=== PATIENT | female | born 1945 | race Caucasian/White ===

== ENCOUNTER 2016-09-10 05:15 | Day surgery (SDC) | payer OTHER ==
[~2016-09-10] VITALS: Ht 162.6 cm; Wt 127.1 kg
--- NOTE | ~2016-09-10 | O ---
[facility] [place] [address] [place] [address] OPERATIVE REPORT Name: MAGGIE MERIDAJen Brennan Room #: 150-4 [facility]#: [id number] Admission: 09/10/16 Attend Phys: Erasmo Loredo MD, Discharge: Date of : 45 Report #: [id number] THIS REPORT FOR: //name// CC: Erasmo Read DATE OF SERVICE: 09/10/2016 PREOPERATIVE DIAGNOSES: 1. Open and grossly infected post-surgical nonhealing abdominal wall wounds with exposed mesh and nonviable fascia. 2. Morbid obesity. 3. Hypertension. 4. Chronic pain. 5. Anxiety. POSTOPERATIVE DIAGNOSES: 1. Open and grossly infected post-surgical nonhealing abdominal wall wounds with exposed mesh and nonviable fascia. 2. Morbid obesity. 3. Hypertension. 4. Chronic pain. 5. Anxiety. PROCEDURES PERFORMED: Excisional debridement of infected abdominal wall, skin, subcutaneous tissue, muscle and fascia from the left mid abdominal wall wound, ultimately yielding a wound measuring 5 x 5 cm in dimension. SURGEON: Erasmo Loredo M.D. SEWING MACHINE MECHANIC: Juan Gagnon MS3. ANESTHESIA: General endotracheal anesthesia. ESTIMATED BLOOD LOSS: Minimal (less than 10 mL). COMPLICATIONS: None appreciated. SPECIMENS: 1. Retained, grossly infected packing gauze to pathology. 2. Debrided nonviable infected abdominal wall fascia to pathology and microbiology. INDICATIONS: The patient is a 71-year-old morbidly obese female, who initially presented to an outside hospital with a small-bowel obstruction for which she underwent exploratory laparotomy. The patient unfortunately sustained [facility] [address] [place] [address] OPERATIVE REPORT Name: LUCI MERIDA Room #: 150-4 [facility].#: [id number] Admission: 09/10/16 Attend Phys: Erasmo Loredo MD, Discharge: Date of : 45 Report #: [id number] a bowel perforation, for which she was taken back to the operating room a few days later and underwent repeat exploration with washout, bowel resection, and ultimately underwent closure of her abdominal wall wound. The patient developed a hematoma in the left mid abdominal wall that was reportedly suspected to be infected and underwent limited incision and drainage. The patient has since been transitioned to [facility] for aggressive local wound care with exposed mesh throughout her nonhealing midline wound, as well as in the left upper quadrant. The patient has had the skin closed off in the left upper quadrant wound to a small punctate opening with grossly necrotic tissue in the bed of the wound, and necessitated excisional debridement of her infected necrotic abdominal wall fascia today. DESCRIPTION OF PROCEDURE: After explaining the risks, benefits, and alternatives of the procedure with the patient in detail in the preoperative holding area and obtaining written consent, the patient was brought to the operating room and placed supine on the operating room table. After conducting a thorough timeout procedure verifying correct patient and procedure, the patient was given general endotracheal anesthesia. Once adequate anesthesia was obtained, SCDs were hooked up to pneumatic compression device. She was given a preoperative dose of antibiotics in line with the SCIP protocol. The patient's abdomen was prepped and draped in the standard surgical sterile fashion. Electrocautery was used to circumferentially debride skin, subcutaneous tissue, muscle, and fascia from the left mid abdominal wall, grossly infected nonhealing wound. Hemostasis was attained with electrocautery. Upon arriving at the level of the fascia, there was evidence of foul smelling what appeared to be grossly infected packing gauze stuck in a tight tunnel at the fascial level. This was removed and passed off the field for microbiologic analysis and pathologic evaluation. I now proceeded to circumferentially debride all nonviable infected fascia, which revealed a healthy rectus muscle evident in the bed of the wound. Once all infected tissue had been removed and passed off the field, the wound was copiously irrigated. Hemostasis was assured. I then packed all wounds tightly with sterile saline soaked Kerlix gauze, and dressed it with ABDs and Medipore tape. At the end of the procedure, all instrument, needle, and sponge counts were correct. The patient tolerated the procedure without incident, was awakened in the operating room and transitioned to the recovery room in stable condition with no apparent complications. <ELECTRONICALLY SIGNED> By: Erasmo Loredo MD, FACS 09/10/16 1512 [id number] Erasmo Loredo MD, FACS /nt
--- NOTE | ~2016-09-10 | S ---
[facility] [place] [address] [place] [address] SURGICAL PATH RPT PROCEDURE Name: LUCI CHEN Room #: 150-4 [facility] M.R.#: [id number] Admission: 09/10/16 Date of : 45 Discharge: Report #: [id number] Path Case #: [id number] PATHOLOGY REPORT COLLECTION DATE: 09/10/2016 RECEIVED DATE: 09/10/2016 SUBMITTING PHYS: Dr. Erasmo Loredo OTHER PHYS: Dr. Deisi Read SPECIMEN(S) RECEIVED: A.Infected abdominal wall packing with tissue B.Infected abdominal wall fascia * * * * * * * * * * * * FINAL DIAGNOSIS: A. Infected abdominal wall packing with tissue: - 15.2 cm of gauze-like material (gross exam only). B. Infected abdominal wall fascia, debridement: - Marked acute inflammation along with fibrinoid degeneration. (IUV:mgr; d/t: 09/13/16) PATHOLOGIST: Anne Beverly M.D. REPORT ELECTRONICALLY SIGNED BY: Anne Beverly M.D. DATE/TIME: 09/13/2016 15:31 * * * * * * * * * * * * GROSS PATHOLOGY: A. The specimen is received in formalin labeled "Luci Chen, infected abdominal wall packing with tissue". Received is a segment of white-singleton gauze-like material measuring 15.2 x 1.5 x 0.1 cm in greatest dimensions. Soft tissue is not grossly identified. A gross photograph is taken. Sections are not submitted. B. The specimen is received in formalin labeled "Luci Chen, infected abdominal wall fascia". Received are multiple segments of white-singleton teague to dusky teague-singleton soft tissue measuring 3.2 x 3.1 x 1.0 cm in aggregate dimensions. The specimen is submitted representatively in cassette B1. (CAA; 09/10/2016) CLINICAL HISTORY: Abdominal wall wound, retained abdominal wall packing INITIAL CPT CODE(S): A; 24383, 54132 Professional services performed by [employer] at [address] [address] SURGICAL PATH RPT PROCEDURE Name: MAGGIE CHENJen Brennan Room #: 150-4 [facility] M.R.#: [id number] Admission: 09/10/16 Date of : 45 Discharge: Report #: [id number] Path Case #: [id number] [address] [place] [address] Technical services performed by [employer] at [address] [place] [address], [address], [place] [address]. [employer] [address] [address] PHONE: [phone] DIRECTOR: Kel Leos M.D. * * * END OF REPORT * * *
[~2016-09-10 05:15] MED LIST: ADVAIR HFA 230M12 GM INH; ARANESP25 MCG/0.4 SUBQ; ASPIR 8181 MG PO; B12INJ IM; COLACE100 MG PO; COREG25 MG PO; DUONEB 2.5-0.5 M3 ML INH; FOLIC ACID1 MG PO; HALDOL 0.5 MG0.5 MG PO; HEPARIN SO5000 UNIT1 SUBQ; IMDUR 60 MG TAB60 M1 PO; IRON325 PO; KEPPRA 500 MG500 M1 PO; LASIX 40 MG TAB40 M2 PO; LEVEMIR SUBQ; LIDODERM 5%1 PATC1 TRANSDERM; MIRALAX17 GM PO; NITROGLYCERIN0.4 MG SUBLING; NORVASC10 MG PO; NOVOLOG100 UNIT/1 SUBQ; ONDANSETRON HCL4 M2 PO; OXYCODONE HCL E10 MG PO; PLAVIX 75 MG TA75 M1 PO; PROTEIN POWDER454 GM PO; PROTONIX40 M1 PO; SEROQUEL 12.512.5 MG PO; SEROQUEL 25 MG25 M1 PO; SINGULAIR 10 MG10 M1 PO; VITAMIN D 5050000 I1 PO
[2016-09-10 06:58] LABS: HEMATOCRIT 29.3 % (37.0-47.0); HEMOGLOBIN 9.8 gm/dL (12.0-15.0); MCH 29.7 pg (26.0-34.0); MCHC 33.4 % (28.0-37.0); MCV 89.2 fL (80.0-100.0); PLATELET COUNT 149 thou/uL (150-400); RBC 3.28 mil/uL (4.20-5.00)
[2016-09-10 07:02] LABS: MANUAL DIFF YES
[2016-09-10 07:53] VITALS: BP 147/66
[2016-09-10 08:03] LABS: ABSOLUTE NEUTROPHILS 6.8 thou/uL (1.4-8.2); METAMYELOCYTES 1 %; TOTAL CELL COUNT 100
[2016-09-10 08:04] LABS: ANISOCYTOSIS 1+; POLYCHROMASIA OCCASIONAL
== END 2016-09-10 14:15 | disposition home or self-care (01) ==
LOC: OR 05:15 → TBA 05:15 → OR 08:48
PROVIDERS: Surgery
DX: T81.4XXA Infection following a procedure, initial encounter (principal); F41.9 Anxiety disorder, unspecified; E11.9 Type 2 diabetes mellitus without complications; G47.33 Obstructive sleep apnea (adult) (pediatric); I11.0 Hypertensive heart disease with heart failure; I50.9 Heart failure, unspecified; E66.01 Morbid (severe) obesity due to excess calories; K21.9 Gastro-esophageal reflux disease without esophagitis; D64.9 Anemia, unspecified; G89.29 Other chronic pain; I25.2 Old myocardial infarction; Y83.8 Other surgical procedures as the cause of abnormal reaction of the patient, or of later complication, without mention of misadventure at the time of the procedure; Y92.89 Other specified places as the place of occurrence of the external cause; Z95.5 Presence of coronary angioplasty implant and graft; Z79.4 Long term (current) use of insulin; Z68.31 Body mass index [BMI] 31.0-31.9, adult; Z90.710 Acquired absence of both cervix and uterus; Z86.73 Personal history of transient ischemic attack (TIA), and cerebral infarction without residual deficits; Z85.118 Personal history of other malignant neoplasm of bronchus and lung; Z85.028 Personal history of other malignant neoplasm of stomach; Z98.890 Other specified postprocedural states
CPT/HCPCS: 50010; 50101; 50386; 50417; 53353; 53354; 62110; 62900; 70005